=== PATIENT | female | born 2000 | race Hispanic/Latino ===

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

== ENCOUNTER 2019-05-09 15:47 | Emergency (ER) | payer MEDICAID, OTHER ==
[2019-05-09] MEDS ORDERED: ACETAMINOPHEN 325 MG TAB ONE (16:10)
[2019-05-09] MEDS ORDERED: SODIUM CHLORIDE 0.9% 1000ML 2,000 ML IV ONE (16:15)
[2019-05-09] MEDS ORDERED: CEFTRIAXONE SODIUM 1 GM ONE (16:15)
[2019-05-09] MEDS ORDERED: SODIUM CHLORIDE 0.9% 50 ML IV ONE (16:16)
[2019-05-09 16:22] LABS: BASOPHILS % (AUTO) 0.2 % (0.0-5.0); EOSINOPHILS % (AUTO) 1.2 % (0.0-8.0); HEMATOCRIT 41.8 % (36-48); LYMPHOCYTES % (AUTO) 8.8 % (21.0-51.0); MEAN CORPUSCULAR HEMOGLOBIN 29.1 pg (27.0-33.0); MEAN CORPUSCULAR HGB CONC 33.3 g/dL (32.0-36.0); MEAN CORPUSCULAR VOLUME 87.6 fL (80-100); MONOCYTES % (AUTO) 0.8 % (3.0-13.0); NUCLEATED RED BLOOD CELLS 0.1 % (0.0-0.19); PLATELET COUNT (AUTO) 238 K/uL (130-400); RED BLOOD CELL COUNT(AUTO) 4.77 MIL/uL (4.00-5.50); RED CELL DISTRIBUTION WIDTH 14.5 % (11.0-15.5); WHITE BLOOD COUNT (AUTO) 8.8 K/uL (4.8-10.8)
[2019-05-09 16:34] LABS: INR 0.99 (0.85-1.15); PARTIAL THROMBOPLASTIN TIME 38.5 SEC (26.3-35.5); PROTHROMBIN TIME 10.4 SEC (9.6-11.6)
[2019-05-09 16:37] LABS: CARBON DIOXIDE 27 mmol/L (21-32); CHLORIDE 102 mmol/L (101-111); CREATININE 0.9 mg/dL (0.5-1.5); GLOMERULAR FILTR. RATE CALC 86 mL/min (>60); GLUCOSE,RANDOM 99 mg/dL (70-105); POTASSIUM 3.4 mmol/L (3.5-5.1); SODIUM SERUM 140 mmol/L (136-145); UREA NITROGEN, BLOOD 8 mg/dL (7-18)
[2019-05-09 16:51] LABS: APPEARANCE,URINE CLOUDY (CLEAR); BILIRUBIN,URINE NEGATIVE (NEGATIVE); COLOR,URINE YELLOW (YELLOW); GLUCOSE, URINE (UA) NEGATIVE (NEGATIVE); KETONES,URINE NEGATIVE (NEGATIVE); LEUKOCYTE ESTERASE ,URINE LARGE (NEGATIVE); NITRATE,URINE POSITIVE (NEGATIVE); OCCULT BLOOD,URINE MODERATE (NEGATIVE); PROTEIN,URINE TRACE mg/dL (NEGATIVE); UROBILINOGEN,URINE 0.2 mg/dL (0.2-1.0)
[2019-05-09 16:56] LABS: HCG,QUAL RESULT NEGATIVE (NEGATIVE)
[2019-05-09 16:57] LABS: ALANINE AMINOTRANSFERASE 17 U/L (12-78); ALBUMIN 4.2 g/dL (3.5-5.0); ASPARTATE AMINOTRANSFERASE 14 U/L (10-37); BILIRUBIN,TOTAL 0.6 mg/dL (0.2-1.0); CREATINE KINASE, TOTAL 109 U/L (21-232); MYOGLOBIN 25 ng/mL (10-92); TOTAL PROTEIN, SERUM 8.1 g/dL (6.0-8.3); TROPONIN I < 0.04 ng/mL (0.00-0.06)
[2019-05-09 17:42] LABS: BACTERIA,URINE Few /HPF (None Seen); WBC,URINE 26-50 /HPF (0-1)
[2019-05-09 17:43] LABS: SQUAMOUS EPITHELIAL CELL,UR Rare /HPF (0-2)
[2019-05-09] MEDS ORDERED: IBUPROFEN 600 MG TABLET ONE (17:59)
== END 2019-05-09 19:54 | disposition home or self-care (01) ==
LOC: EDH 15:47
DX: N10 Acute pyelonephritis (principal); R79.1 Abnormal coagulation profile
CPT/HCPCS: 36415; 74176; 80053; 81001; 81025; 82550; 83605; 83874; 84484; 85025; 85610; 85730; 87040 ×2; 87088; 87486; 87797; 87804 ×2; 93005; 96374; 99285; J0696; J7030; 87077; 87186

== ENCOUNTER 2023-02-12 04:52 | Observation (INO) | payer MEDICAID ==
[2023-02-12] VITALS (25 sets, daily range): BP systolic 94–131; BP diastolic 51–90
[~2023-02-12] VITALS: Ht 154.9 cm; Wt 63.0 kg
[2023-02-12] MEDS: LACTATED RINGERS 1000ML 1,000 ML IV SCH ×2 (06:00→14:00)
[2023-02-12 06:05] LABS: APPEARANCE,URINE CLEAR (CLEAR); BILIRUBIN,URINE NEGATIVE (NEGATIVE); GLUCOSE, URINE (UA) NEGATIVE (NEGATIVE); KETONES,URINE NEGATIVE (NEGATIVE); LEUKOCYTE ESTERASE ,URINE 250 Leu/uL (NEGATIVE); NITRATE,URINE NEGATIVE (NEGATIVE); OCCULT BLOOD,URINE NEGATIVE (NEGATIVE); PH,URINE 6.5 (5.0-8.0); PROTEIN,URINE NEGATIVE (NEGATIVE); SQUAMOUS EPITHELIAL CELL,UR RARE /HPF (0-2); UROBILINOGEN,URINE 0.2 mg/dL (0.2-1.0)
[2023-02-12 06:06] LABS: COLOR,URINE Light-Yellow (YELLOW)
[2023-02-12 06:10] LABS: HCG,QUALITATIVE URINE NEGATIVE (NEGATIVE)
[2023-02-12 06:14] LABS: BASOPHILS % (AUTO) 0.4 % (0.0-5.0); EOSINOPHILS % (AUTO) 1.6 % (0.0-8.0); HEMATOCRIT 39.4 % (36-48); LYMPHOCYTES % (AUTO) 38.3 % (21.0-51.0); MEAN CORPUSCULAR HEMOGLOBIN 29.5 pg (27.0-33.0); MEAN CORPUSCULAR HGB CONC 33.2 g/dL (32.0-36.0); MEAN CORPUSCULAR VOLUME 88.7 fL (79-99); MONOCYTES % (AUTO) 6.9 % (3.0-13.0); NEUTROPHILS % (AUTO) 52.5 % (40.0-77.0); PLATELET COUNT (AUTO) 280 K/uL (130-400); RED BLOOD CELL COUNT(AUTO) 4.44 MIL/uL (4.00-5.50); RED CELL DISTRIBUTION WIDTH 13.1 % (11.0-15.5)
[2023-02-12 06:25] LABS: INR 1.05 (0.85-1.15); PROTHROMBIN TIME 11.4 SEC (9.6-11.6)
[2023-02-12 06:26] LABS: PARTIAL THROMBOPLASTIN TIME 34.5 SEC (26.3-35.5)
[2023-02-12 06:40] LABS: ALBUMIN 4.2 g/dL (3.5-5.0); CREATININE 0.6 mg/dL (0.5-1.5); POTASSIUM 3.7 mmol/L (3.5-5.1); TOTAL PROTEIN, SERUM 7.4 g/dL (6.0-8.3)
[2023-02-12] MEDS ORDERED: HYDROMORPHONE 0.5 MG SYG (0.5MG/0.5ML) IVP PRN (08:00)
[2023-02-12] MEDS ORDERED: CEFTRIAXONE 1G VIAL IVPB ONE (08:00)
[2023-02-12] MEDS ORDERED: LIDOCAINE PF 100MG/5ML (2%) SYRINGE 5ML ONE (11:06)
[2023-02-12] MEDS ORDERED: PROPOFOL 10 MG/ML 20ML VIAL IV ONE (11:07)
[2023-02-12] MEDS ORDERED: MIDAZOLAM HCL 1 MG/ML 2ML VIAL ONE (11:07)
[2023-02-12] MEDS ORDERED: ROCURONIUM 10MG/1ML SYR 10 MG/ML ML ONE (11:07)
[2023-02-12] MEDS ORDERED: GLYCOPYRROLATE 1 MG/5 ML SYRINGE ONE (11:08)
[2023-02-12] MEDS ORDERED: FENTANYL CITRATE PF 50 MCG/1 ML 2ML VIAL ONE ×2 (11:08→12:32)
[2023-02-12] MEDS ORDERED: NEOSTIGMINE 5MG/5ML SYR IV ONE (11:08)
[2023-02-12] MEDS ORDERED: ROPIVACAINE 0.5% 5MG/ML 30ML IJ ONE (11:12)
[2023-02-12] MEDS ORDERED: BUPIVACAINE/PF 0.25% 30ML VIAL IJ ONE (11:32)
[2023-02-12] MEDS ORDERED: IOHEXOL-350 50ML VIAL IV ONE (12:12)
[2023-02-12] MEDS ORDERED: ONDANSETRON 4MG INJ ONE (12:29)
[2023-02-12] MEDS ORDERED: KETOROLAC 30MG VIAL (30MG/ML) ONE (13:06)
[2023-02-12] MEDS ORDERED: MEPERIDINE-PF 25 MG/ML SYG ONE (13:46)
[2023-02-12] MEDS ORDERED: TRAMADOL HCL 50 MG TABLET PO PRN (16:30)
[2023-02-12] MEDS ORDERED: [UNRECOGNIZED DRUG - REMARK] MISC SCH (16:30)
[2023-02-12] MEDS ORDERED: PHARMACY COMMUNICATION MISC SCH (16:30)
== END 2023-02-12 19:15 | disposition home or self-care (01) ==
LOC: EDH 04:52 → DIRECT 04:53 → INTOOBSV 04:53 → 4CH 05:37
PROVIDERS: ADMIT Internal Medicine; ATTEND Internal Medicine
DX: K80.62 Calculus of gallbladder and bile duct with acute cholecystitis without obstruction (principal); Z20.822 Contact with and (suspected) exposure to COVID-19; K82.8 Other specified diseases of gallbladder; N39.0 Urinary tract infection, site not specified; Z79.899 Other long term (current) drug therapy
CPT/HCPCS: 47564; 96365; 99284; 80053; 85025; 85610; 85730; 87088; 81001; 81025; 36415; 87635; G0378 ×2; J7030; C1758; J3010 ×2; J3490 ×3; J2710; S0020; J0696; J2250; J2405; J1885; J2175; J2795; Q9967; A4649 ×2; A4930 ×2; A4223; A4222; A4216; A4600; J2001; J2704